=== PATIENT | female | born 2005 | race African-American/Black ===

== ENCOUNTER 2024-08-03 14:52 | Emergency (ER) | payer MEDICAID ==
[~2024-08-03] VITALS: Ht 167.6 cm; Wt 60.0 kg
[2024-08-03 14:59] VITALS: O2SAT 100
[2024-08-03] MEDS ORDERED: LIDO700A15 TP (16:51)
[2024-08-03] MEDS ORDERED: NAPR-1176 MT (16:51)
[2024-08-03 17:09] VITALS: BP 128/71; PULSE 81; RESP 18; TEMP 36.89184; O2SAT 100
== END 2024-08-03 17:20 | disposition home or self-care (01) ==
LOC: ER 14:52
DX: M21.372 Foot drop, left foot (principal)
CPT/HCPCS: 73630; 99283

== ENCOUNTER 2025-09-07 20:29 | Emergency (ER) | payer MEDICAID ==
[~2025-09-07] VITALS: Ht 160 cm; Wt 55.0 kg
[~2025-09-07 20:29] MED LIST: LIDO-53 TP; NAPR-1176 MT
[2025-09-07 20:31] VITALS: TEMP 36.7; O2SAT 100
[2025-09-07] MEDS: LORAZEPAM 1MG TABLET PO ONE (21:13)
[2025-09-07 21:17] LABS: BASOPHILS % 0.1 % (0.0-2.0); EOSINOPHILS % 0.0 % (0.0-5.0); HEMATOCRIT. 36.3 % (36.0-48.0); HEMOGLOBIN. 12.2 g/dL (12.0-16.0); LYMPHOCYTES % 17.1 % (20.0-50.0); MEAN PLATELET VOLUME 10.5 fl (7.4-10.4); MONOCYTES % 7.0 % (2.0-8.0); NEUTROPHILS % 75.8 % (40.0-76.0); PLATELET 185 x1000/uL (130-400); RED BLOOD CELL COUNT 4.08 mill/uL (4.2-5.4); RED CELL DISTRIBUTION WIDTH 13.2 % (11.6-14.6)
[2025-09-07 21:39] LABS: CREATININE 0.9 mg/dL (0.6-1.0); TROPONIN I HIGH SENSITIVITY < 4 ng/L (3.0-34); UREA NITROGEN BLOOD 12 mg/dL (9-23)
[2025-09-07 21:40] LABS: HCG SCREEN NEGATIVE
[2025-09-07 21:41] LABS: ASPARTATE AMINOTRANSFERASE 19 IU/L (<34); BILIRUBIN DIRECT 0.2 mg/dL (<=3.0); BILIRUBIN TOTAL 0.6 mg/dL (0.1-1.0); PROTEIN TOTAL 8.3 g/dL (6.0-8.3)
[2025-09-07 22:20] VITALS: BP 126/60; PULSE 70; RESP 12; O2SAT 100
== END 2025-09-07 22:25 | disposition home or self-care (01) ==
LOC: ER 20:29
DX: F19.10 Other psychoactive substance abuse, uncomplicated (principal); F12.90 Cannabis use, unspecified, uncomplicated; F41.9 Anxiety disorder, unspecified; Z79.1 Long term (current) use of non-steroidal anti-inflammatories (NSAID); Z79.899 Other long term (current) drug therapy
CPT/HCPCS: 36415; 80048; 80076; 83735; 84484; 84703; 85025; 93005; 99284